=== PATIENT | male | born 1970 | race Caucasian/White ===

== ENCOUNTER → 2016-06-09 | Outpatient (CLI) | payer BC | LOC: LAB 11:45 | DX: R10.84 Generalized abdominal pain (principal); Z72.51 High risk heterosexual behavior ==

== ENCOUNTER → 2016-06-10 | Outpatient (CLI) | payer BC | LOC: LAB 09:54 | DX: R10.84 Generalized abdominal pain (principal); Z72.51 High risk heterosexual behavior ==

== ENCOUNTER → 2016-06-16 | Outpatient (CLI) | payer BC | LOC: LAB 09:32 | DX: N41.0 Acute prostatitis (principal) ==

== ENCOUNTER → 2016-08-07 | Outpatient (CLI) | payer BC | LOC: RAD 13:50 | DX: R05 Cough (principal) ==

== ENCOUNTER → 2017-01-16 | Outpatient (CLI) | payer BC | LOC: LAB 15:28 | DX: J02.9 Acute pharyngitis, unspecified (principal) ==

== ENCOUNTER → 2017-01-24 | Outpatient (CLI) | payer BC | LOC: LAB 11:26 | DX: R53.83 Other fatigue (principal) ==

== ENCOUNTER → 2017-01-29 | Outpatient (CLI) | payer BC | LOC: LAB 15:02 | DX: Z72.51 High risk heterosexual behavior (principal) ==

== ENCOUNTER → 2018-02-28 | Outpatient (CLI) | payer OTHER ==
[2018-02-28 16:04] LABS: HEMOGLOBIN 15.3 g/dL (13.5-18.0); MEAN PLATELET VOLUME 9.8 fl (7.4-10.4); RED BLOOD COUNT 4.86 M/mm3 (4.20-5.60); RED CELL DISTRIBUTION WIDTH 12.3 % (11.5-14.5); WHITE BLOOD COUNT 6.8 K/mm3 (4.8-10.8)
[2018-02-28 16:15] LABS: ALBUMIN 4.4 g/dL (3.5-5.0); CALCIUM 9.1 mg/dL (8.4-10.2); POTASSIUM 4.1 mmol/L (3.6-5.0); TOTAL BILIRUBIN 0.7 mg/dL (0.2-1.3); TOTAL PROTEIN 7.7 g/dL (6.3-8.2)
[2018-02-28 16:26] LABS: PH-URINE 6.5 (5.0 - 8.0); URINE APPEARANCE CLEAR; URINE BILIRUBIN NEGATIVE (NEGATIVE); URINE BLOOD NEGATIVE (NEGATIVE); URINE COLOR YELLOW; URINE GLUCOSE NEGATIVE (NEGATIVE); URINE KETONE NEGATIVE (NEGATIVE); URINE LEUKOCYTE ESTERASE NEGATIVE (NEGATIVE); URINE NITRATE NEGATIVE (NEGATIVE); URINE PROTEIN(semi-quant) NEGATIVE (NEGATIVE); URINE UROBILINOGEN NORMAL (NORMAL)
[2018-02-28 16:27] LABS: URINE WBC 0-1 /hpf (0-3)
== END ==
LOC: LAB 15:31
PROVIDERS: Family Medicine
DX: T38.0X5A Adverse effect of glucocorticoids and synthetic analogues, initial encounter (principal); R25.2 Cramp and spasm; R53.83 Other fatigue

== ENCOUNTER → 2018-03-11 | Outpatient (CLI) | payer OTHER | LOC: LAB 16:50 | PROVIDERS: Family Medicine | DX: R53.1 Weakness (principal); R20.0 Anesthesia of skin; R20.2 Paresthesia of skin; Z56.6 Other physical and mental strain related to work ==

== ENCOUNTER → 2018-05-06 | Outpatient (CLI) | payer OTHER | LOC: RAD 16:21 | DX: R20.2 Paresthesia of skin (principal); R20.0 Anesthesia of skin | CPT/HCPCS: A9585 ==

== ENCOUNTER → 2018-05-06 | Outpatient (CLI) | payer OTHER ==
[2018-05-06 08:29] LABS: ALBUMIN 4.4 g/dL (3.5-5.0); CALCIUM 9.4 mg/dL (8.4-10.2); POTASSIUM 4.2 mmol/L (3.6-5.0); TOTAL BILIRUBIN 0.9 mg/dL (0.2-1.3); TOTAL PROTEIN 7.2 g/dL (6.3-8.2)
[2018-05-07 00:22] LABS: FOLATE (FOLIC ACID) 13.7 ng/mL (7.0-31.4)
[2018-05-07 01:18] LABS: T3 FREE 2.7 pg/mL (1.7-3.7)
[2018-05-07 08:41] LABS: RPR (VDRL) Negative (Negative)
[2018-05-07 09:52] LABS: T3 TOTAL 120 ng/dL (87-178)
[2018-05-08 00:32] LABS: ANA SCREEN with REFLEX Negative (Negative)
== END ==
LOC: LAB 05-04 12:33
PROVIDERS: Psychiatry & Neurology Neurology
DX: M47.812 Spondylosis without myelopathy or radiculopathy, cervical region (principal); R20.2 Paresthesia of skin; R20.0 Anesthesia of skin

== ENCOUNTER → 2018-12-09 | Outpatient (CLI) | payer OTHER | LOC: LAB 17:10 | DX: I73.00 Raynaud's syndrome without gangrene (principal); R20.9 Unspecified disturbances of skin sensation; R79.89 Other specified abnormal findings of blood chemistry ==

== ENCOUNTER → 2020-06-11 | Outpatient (CLI) | payer OTHER ==
[2020-06-11 16:20] LABS: ALBUMIN 4.4 g/dL (3.5-5.0); POTASSIUM 3.9 mmol/L (3.5-5.1)
[2020-06-11 16:21] LABS: CALCIUM 9.2 mg/dL (8.3-10.5)
[2020-06-11 16:23] LABS: TOTAL PROTEIN 7.6 g/dL (6.4-8.3)
[2020-06-11 16:24] LABS: TOTAL BILIRUBIN 0.7 mg/dL (0.2-1.2)
== END ==
LOC: LAB 15:57
PROVIDERS: Family Medicine
DX: Z00.00 Encounter for general adult medical examination without abnormal findings (principal); Z13.6 Encounter for screening for cardiovascular disorders